=== PATIENT | male | born 1955 | race Caucasian/White ===

== ENCOUNTER 2018-11-13 12:35 | Emergency (ER) | payer BC ==
[~2018-11-13] VITALS: Ht 177.8 cm; Wt 70.5 kg
[2018-11-13 12:55] VITALS: TEMP 97.9
[2018-11-13 13:37] LABS: HEMATOCRIT 49.8 % (42.0-52.0); HEMOGLOBIN 17.6 g/dl (13.5-18.0); MEAN CELL VOLUME 89 fl (80.0-100.0); MEAN CORPUSCULAR HEMOGLOBIN 31 pg (27.0-31.0); MEAN CORPUSCULAR HGB CONC 35 g/dl (33.0-37.0); MEAN PLATELET VOLUME 9.9 fl (7.4-10.4); PLATELET COUNT 329 K/mm3 (130-400); RED BLOOD COUNT 5.62 M/mm3 (4.20-5.60); REDCELL DISTRIBUTION WIDTH-CV 14.5 % (11.5-14.5)
[2018-11-13 13:49] LABS: BAND 3 % (0-10); BASOPHIL 1 % (0-2); LYMPHOCYTE 9 % (20.0-51.0); NEUTROPHILS 73 % (42.0-75.2); PLATELET ESTIMATE NORMAL (NORMAL)
[2018-11-13 13:52] LABS: BILIRUBIN,TOTAL 1.6 mg/dL (0.0-1.0); CALCIUM 10.3 mg/dL (8.4-10.2); CREATININE, serum 1.19 mg/dL (0.66-1.25); POTASSIUM 3.2 mmol/L (3.4-5.0)
[2018-11-13] MEDS ORDERED: ASPIRIN 81M81 MG/TA2 PO (14:01)
[2018-11-13] MEDS ORDERED: PLAVIX 75MG TAB75 MG PO (14:01)
[2018-11-13] MEDS ORDERED: KAPSPARGO SPRIN25 MG PO (14:02)
[2018-11-13 14:04] LABS: TROPONIN-I 0.017 ng/mL (0.000-0.034)
[2018-11-13 14:32] LABS: COLLECTION METHOD CLEAN CATCH
[2018-11-13 14:44] LABS: MUCOUS Present /lpf; PH 7 (5-8); SQUAMOUS EPITHELIAL 0-2 /hpf; URINE APPEARANCE Clear; URINE BACTERIA None Seen /hpf; URINE BILIRUBIN Negative (NEGATIVE); URINE BLOOD 1+ (NEGATIVE); URINE COLOR Yellow; URINE GLUCOSE Negative (NEGATIVE); URINE KETONE 1+ (NEGATIVE); URINE LEUKOCYTE ESTERASE Negative (NEGATIVE); URINE NITRATE Negative (NEGATIVE); URINE PROTEIN(semi-quant) 2+ (NEGATIVE); URINE UROBILINOGEN Negative (NEGATIVE); URINE WBC 0-2 /hpf
[2018-11-13 16:56] LABS: BASO # 0.1 (0.0-0.2); BASO % 0.2 % (0.0-2.0); EOS # 0.1 (0.0-0.7); EOS % 0.4 % (0-4.0); GRAN # 19.2 (1.4-6.5); HEMATOCRIT 46.3 % (42.0-52.0); HEMOGLOBIN 16.3 g/dl (13.5-18.0); LYMPH % 8.4 % (20.0-51.0); MEAN CELL VOLUME 90 fl (80.0-100.0); MEAN CORPUSCULAR HEMOGLOBIN 32 pg (27.0-31.0); MEAN CORPUSCULAR HGB CONC 35 g/dl (33.0-37.0); MEAN PLATELET VOLUME 9.9 fl (7.4-10.4); MONO # 2.7 (0.1-0.6); MONO % 11.2 % (1.7-9.3); PLATELET COUNT 298 K/mm3 (130-400); RED BLOOD COUNT 5.17 M/mm3 (4.20-5.60); REDCELL DISTRIBUTION WIDTH-CV 14.4 % (11.5-14.5)
[2018-11-13] MEDS ORDERED: ZOFRAN ODT4 MG PO (17:32)
[2018-11-13 18:00] VITALS: BP 164/90; PULSE 76
== END 2018-11-13 18:00 | disposition home or self-care (01) ==
LOC: COL.ER 12:35
PROVIDERS: Emergency Medicine
DX: K52.9 Noninfective gastroenteritis and colitis, unspecified (principal); I10 Essential (primary) hypertension; E78.5 Hyperlipidemia, unspecified; Z79.82 Long term (current) use of aspirin; Z79.02 Long term (current) use of antithrombotics/antiplatelets; F17.210 Nicotine dependence, cigarettes, uncomplicated
CPT/HCPCS: J2060; J2405; J2550; J3480; J7030; Q9967

== ENCOUNTER 2018-11-15 05:54 | Observation (INO) | payer BC ==
[~2018-11-15] VITALS: Ht 177.8 cm; Wt 75.5 kg
[~2018-11-15 05:54] MED LIST: ASPIRIN 81M81 MG/TA2 PO; KAPSPARGO SPRIN25 MG PO; PLAVIX 75MG TAB75 MG PO; ZOFRAN ODT4 MG PO
[2018-11-15 06:42] LABS: BASO % 0.2 % (0.0-2.0); GRAN # 10.7 (1.4-6.5); GRAN % 62.6 % (42.2-75.2); HEMATOCRIT 46.8 % (42.0-52.0); HEMOGLOBIN 16.6 g/dl (13.5-18.0); LYMPH # 3.6 (1.2-3.4); LYMPH % 21.3 % (20.0-51.0); MEAN CELL VOLUME 88 fl (80.0-100.0); MEAN CORPUSCULAR HEMOGLOBIN 31 pg (27.0-31.0); MEAN CORPUSCULAR HGB CONC 36 g/dl (33.0-37.0); MEAN PLATELET VOLUME 10.2 fl (7.4-10.4); MONO # 2.6 (0.1-0.6); MONO % 15.3 % (1.7-9.3); PLATELET COUNT 304 K/mm3 (130-400); RED BLOOD COUNT 5.32 M/mm3 (4.20-5.60); REDCELL DISTRIBUTION WIDTH-CV 14.2 % (11.5-14.5)
[2018-11-15] MEDS ORDERED: TOPROL XL 25MG25 MG PO (06:45)
[2018-11-15 07:13] LABS: ALBUMIN 4.6 gm/dL (3.5-5.0); BILIRUBIN,TOTAL 1.7 mg/dL (0.0-1.0); C-REACTIVE PROTEIN 1.1 mg/dL (0.0-0.9); CALCIUM 10.2 mg/dL (8.4-10.2); CREATININE, serum 1.2 mg/dL (0.66-1.25); POTASSIUM 3.1 mmol/L (3.4-5.0)
[2018-11-15 07:24] LABS: TROPONIN-I 0.061 ng/mL (0.000-0.034)
[2018-11-15 07:58] LABS: COLLECTION METHOD CLEAN CATCH
[2018-11-15 08:03] LABS: MUCOUS Present /lpf; PH 5 (5-8); SQUAMOUS EPITHELIAL None Seen /hpf; URINE APPEARANCE Clear; URINE BACTERIA None Seen /hpf; URINE BILIRUBIN Negative (NEGATIVE); URINE BLOOD 2+ (NEGATIVE); URINE COLOR Yellow; URINE GLUCOSE Negative (NEGATIVE); URINE KETONE 1+ (NEGATIVE); URINE LEUKOCYTE ESTERASE Negative (NEGATIVE); URINE NITRATE Negative (NEGATIVE); URINE PROTEIN(semi-quant) Negative (NEGATIVE); URINE RBC 0-2 /hpf; URINE UROBILINOGEN Negative (NEGATIVE)
[2018-11-15 11:50] VITALS: BP 179/86; PULSE 69; TEMP 98.8
--- NOTE | 2018-11-15 12:10 | NUR ---
pt alert and oriented. Pt breathing labored d/t nausea and pain. Pt nausea/pain managed with PRN meds and repositioning. Pt oriented to room. Pt NPO at this time. Pt rates pain 4/10 in throat and abdomen. Pt has call light in reach and MD updated on arrival to unit.
--- NOTE | 2018-11-15 15:22 | NUR ---
MD was updated on Troponin level after critical was called to this nurse. NNO received.
[2018-11-15 15:24] VITALS: BP 179/79; PULSE 63; TEMP 99.7
--- NOTE | 2018-11-15 16:00 | NUR ---
Pt's IV in LAC has stopped several times d/t occlussion from pt bending arm. Pt also had ultrasound this afternoon which fluids were stopped during. Pt next dose of potassium will be given in one hour. Pt resting in bed and continues to have some dry heaves this afternoon. Pt has been eating ice chips this afternoon. Pt has call light in reach and calls for assistance to ambulate d/t unsteady gait.
[2018-11-15 16:01] LABS: CALCIUM 8.9 mg/dL (8.4-10.2); CREATININE, serum 0.97 mg/dL (0.66-1.25); POTASSIUM 3.4 mmol/L (3.4-5.0)
[2018-11-15 19:20] VITALS: BP 132/63; PULSE 66; TEMP 99.1
--- NOTE | 2018-11-15 20:40 | NUR ---
PT IN BED AND WAS ASLEEP, BUT EASILY AWAKENED. PT DENIES PAIN OR DISCOMFORT. ADVISES THAT HE HAD A LITTLE NAUSEA TODAY BUT FEELS BETTER, ALSO, PT REQUESTED JELLO TO TRY. PT ADVISES THAT JELLO DOES NOT MAKE HIM FEEL NAUSEAD OR ANYTHING AT THIS TIME. NO FURTHER NEEDS AND CALL LIGHT WITHIN REACH.
[2018-11-15 23:24] VITALS: BP 192/82; PULSE 65; TEMP 98.3
[2018-11-16 03:34] VITALS: BP 189/78; PULSE 59; TEMP 97.3
--- NOTE | 2018-11-16 05:52 | NUR ---
PT WAS GIVEN ZOFRAN DURING THE NIGHT, BECAUSE PT WAS MOANING IN DISCOMFORT FROM FEELING NAUSEAD. PT WANTED TO TAKE A HOT BATH, BUT PT ADVISES THAT HE DOES FEEL DIZZY. PT WAS GIVEN A WARM PACK FOR HIS BACK AND HAS BEEN SLEEP/RESTING WELL SINCE THEN. CALL LIGHT WITHIN REACH.
--- NOTE | 2018-11-16 06:29 | NUR ---
PT ADVISED THAT HEAT PACK REALLY HELPED HIM AND ALSO THAT HE WANTED TO GET A NICOTINE PATCH BECAUSE HE IS A SMOKER. CALL LIGHT WITHIN REACH.
[2018-11-16 07:46] VITALS: BP 140/65; PULSE 62; TEMP 99.6
[2018-11-16 07:59] LABS: BASO % 0.3 % (0.0-2.0); EOS % 0.1 % (0-4.0); GRAN # 7.3 (1.4-6.5); GRAN % 60.8 % (42.2-75.2); HEMATOCRIT 38.3 % (42.0-52.0); LYMPH # 3.2 (1.2-3.4); LYMPH % 26.8 % (20.0-51.0); MEAN CELL VOLUME 92 fl (80.0-100.0); MEAN CORPUSCULAR HEMOGLOBIN 31 pg (27.0-31.0); MEAN CORPUSCULAR HGB CONC 34 g/dl (33.0-37.0); MEAN PLATELET VOLUME 10.2 fl (7.4-10.4); MONO # 1.4 (0.1-0.6); MONO % 11.5 % (1.7-9.3); PLATELET COUNT 255 K/mm3 (130-400); RED BLOOD COUNT 4.15 M/mm3 (4.20-5.60); REDCELL DISTRIBUTION WIDTH-CV 14.6 % (11.5-14.5)
[2018-11-16 08:07] LABS: CALCIUM 8.2 mg/dL (8.4-10.2); CREATININE, serum 0.89 mg/dL (0.66-1.25); MAGNESIUM 2.2 mg/dL (1.6-2.3); POTASSIUM 3.2 mmol/L (3.4-5.0)
[2018-11-16 11:22] VITALS: BP 176/82; PULSE 59; TEMP 98.7
--- NOTE | 2018-11-16 14:59 | NUR ---
Plan to return home with michael as care support. Patient reports that he does not have a DPOA, and denies having any needs, or using any home health. Pt reports PCP Dr. He, and Kerry stack for RX. No additional concerns identified.
[2018-11-16 15:12] VITALS: BP 178/79; PULSE 60; TEMP 98.4
[2018-11-16] MEDS ORDERED: LIPITOR 40MG TA40 MG PO (15:39)
[2018-11-16] MEDS ORDERED: K-DUR 10 MEQ T10 MEQ PO (15:42)
--- NOTE | 2018-11-16 16:31 | NUR ---
Discharge instructions reviewed with the patient, instructed to follow up with PCP in 1 week and to hav BMP drawn prior to appointment, isntructed to stop smoking marijuanas this is beleives to have contributed to his Nausea/vomitting, IV site removed, scripts for Lipitor and KCL sent to [facility] pharmacy for him
== END 2018-11-16 16:38 | disposition home or self-care (01) ==
LOC: COL.ER 05:54 → MEDICAL 08:50
PROVIDERS: Emergency Medicine; ADMIT Internal Medicine
DX: R11.2 Nausea with vomiting, unspecified (principal); I10 Essential (primary) hypertension; E87.6 Hypokalemia; D72.829 Elevated white blood cell count, unspecified; K21.9 Gastro-esophageal reflux disease without esophagitis; R82.4 Acetonuria; I73.9 Peripheral vascular disease, unspecified; R94.39 Abnormal result of other cardiovascular function study; F17.210 Nicotine dependence, cigarettes, uncomplicated; Z79.82 Long term (current) use of aspirin; Z79.02 Long term (current) use of antithrombotics/antiplatelets; Z82.49 Family history of ischemic heart disease and other diseases of the circulatory system; Z83.3 Family history of diabetes mellitus
CPT/HCPCS: C9113; G0378; J1650; J2060; J2270; J2405; J3480; J7030

== ENCOUNTER 2022-02-14 09:50 | Inpatient (IN) | payer MEDICARE ==
[~2022-02-14] VITALS: Ht 177.8 cm; Wt 69.7 kg
[2022-02-14] VITALS (465 sets, daily range): BP systolic 106–164; BP diastolic 73–96; PULSE 81–87; TEMP 98.1–98.2; O2SAT 88–100
[~2022-02-14 09:50] MED LIST changes: +K-DUR 10 MEQ T10 MEQ PO; +LIPITOR 40MG TA40 MG PO; +TOPROL XL 25MG25 MG PO
[2022-02-14 10:09] LABS: MEAN CELL VOLUME 83 fl (80.0-100.0); MEAN CORPUSCULAR HGB CONC 37 g/dl (33.0-37.0); MEAN PLATELET VOLUME 9.5 fl (7.4-10.4); PLATELET COUNT 396 K/mm3 (130-400); RED BLOOD COUNT 6.32 M/mm3 (4.20-5.60); REDCELL DISTRIBUTION WIDTH-CV 15.2 % (11.5-14.5)
[2022-02-14 10:15] LABS: HEMATOCRIT 52.7 % (42.0-52.0); HEMOGLOBIN 19.3 g/dl (13.5-18.0); MEAN CORPUSCULAR HEMOGLOBIN 31 pg (27-31)
[2022-02-14 10:31] LABS: ALBUMIN 5.2 gm/dL (3.4-4.8); BAND 5 % (0-10); BASOPHIL 1 % (0-2); BILIRUBIN,TOTAL 1.1 mg/dL (0.2-1.2); C-REACTIVE PROTEIN 2.67 mg/dL (0.00-0.50); CALCIUM 10.3 mg/dL (8.4-10.2); CREATININE, serum 6.52 mg/dL (0.72-1.25); LYMPHOCYTE 10 % (20.0-51.0); NEUTROPHILS 81 % (42.0-75.2); PLATELET ESTIMATE NORMAL (NORMAL); POTASSIUM 3.6 mmol/L (3.5-4.5); TOTAL PROTEIN 9.2 gm/dL (6.2-8.1)
[2022-02-14 10:32] LABS: MICROCYTOSIS 1+
[2022-02-14 10:37] LABS: TROPONIN-I 0.098 ng/mL (0.00-0.033)
--- NOTE | 2022-02-14 13:40 | NUR ---
Patient alert and oriented upon arrival. Able to self transfer to ICU cot independently. Continues to have intermittent nausea. BP elevated and hospitalist notified. Awaiting for further admission orders. Will continue to monitor.
--- NOTE | 2022-02-14 15:06 | NUR ---
Discussed with ALAINA Clark about patient's elevated WBC count and no antibiotics ordered. Hospitalist suspecting elevated WBC due to dehydration but will review chart.
--- NOTE | 2022-02-14 17:30 | NUR ---
Dr. Godfrey at bedside to see patient. Will continue current care plan.
[2022-02-14 18:46] LABS: COLLECTION METHOD CLEAN CATCH
[2022-02-14 18:59] LABS: MUCOUS Present (NOT PRESENT); PH 5 (5-8); SQUAMOUS EPITHELIAL None Seen /hpf (0-10); URINE APPEARANCE Hazy (CLEAR/HAZY); URINE BACTERIA None Seen /hpf (NONE SEEN); URINE BILIRUBIN Negative (NEGATIVE); URINE BLOOD 2+ (NEGATIVE); URINE COLOR Yellow (YELLOW); URINE GLUCOSE 1+ (NEGATIVE); URINE KETONE Negative (NEGATIVE); URINE LEUKOCYTE ESTERASE Negative (NEGATIVE); URINE NITRATE Negative (NEGATIVE); URINE PROTEIN(semi-quant) 1+ (NEGATIVE); URINE RBC 0-2 /hpf (0-2); URINE UROBILINOGEN Negative (NEGATIVE)
[2022-02-14 19:03] LABS: TRICYCLIC ANTIDEPRESS URINE NEGATIVE
[2022-02-14 23:32] LABS: CALCIUM 8.1 mg/dL (8.4-10.2); CREATININE, serum 3.46 mg/dL (0.72-1.25); MAGNESIUM 2.2 mg/dL (1.6-2.6); PHOSPHOROUS 4.5 mg/dL (2.3-4.7); POTASSIUM 3.7 mmol/L (3.5-4.5)
[2022-02-15] VITALS (1351 sets, daily range): BP systolic 109–158; BP diastolic 55–93; PULSE 68–96; TEMP 98.1–99; O2SAT 78–100
[2022-02-15 01:11] LABS: CREATININE, serum 3.26 mg/dL (0.72-1.25)
[2022-02-15 01:15] LABS: FRACTIONAL EXCRETION OF NA+ 0.62 %
[2022-02-15 06:06] LABS: HEMATOCRIT 40.6 % (42.0-52.0); MEAN CORPUSCULAR HGB CONC 35 g/dl (33.0-37.0); MEAN PLATELET VOLUME 10.2 fl (7.4-10.4); RED BLOOD COUNT 4.54 M/mm3 (4.20-5.60); REDCELL DISTRIBUTION WIDTH-CV 14.8 % (11.5-14.5)
[2022-02-15 06:11] LABS: MEAN CELL VOLUME 89 fl (80.0-100.0); MEAN CORPUSCULAR HEMOGLOBIN 31 pg (27-31)
[2022-02-15 06:12] LABS: PLATELET COUNT 265 K/mm3 (130-400)
[2022-02-15 06:34] LABS: CALCIUM 7.9 mg/dL (8.4-10.2); CREATININE, serum 2.35 mg/dL (0.72-1.25); POTASSIUM 3.6 mmol/L (3.5-4.5)
[2022-02-15 07:25] LABS: BAND 21 % (0-10); LYMPHOCYTE 6 % (20.0-51.0); NEUTROPHILS 65 % (42.0-75.2); OVALOCYTES 1+; PLATELET ESTIMATE NORMAL (NORMAL)
--- NOTE | 2022-02-15 10:05 | NUR ---
Social Work student met with patient to discuss discharge planning. Patient lives in [place] and has listed his sister in law as his emergency contact, Vikki(ph#[phone]). Patient sees Dr. Roa for primary care, and receives his medications from [facility] in [place] with no cost difficulty. Patient does not utilize any durable medical equiptment nor any oxygen needs. Patient states that he is independent with his ADL's. Patient states that he does not have a DPOA-HC established. This SW student found next of kin. Patient is and does not have any blood-related kids. Patient states he has two step-sons. Patient has two brothers: Daryl and Alexander, but he states he does not have a contact for them and they do not live in [place]. SW student asked the patient if he would be interested in filling out a DPOA-HC while in the hospital and the patient replied with a hard, "No." *Discharge Plan: Home*
--- NOTE | 2022-02-15 15:33 | NUR ---
AT 1530 PATIENT TRANSPORTED TO ROOM 326 REPROT WAS GIVEN TO CHEY RIBERAUPPER AND BOTTOM LACER HAND
[2022-02-16] VITALS (1420 sets, daily range): BP systolic 108–149; BP diastolic 63–80; PULSE 50–72; TEMP 97.8–99.1; O2SAT 82–100
[2022-02-16 05:45] LABS: HEMATOCRIT 37.4 % (42.0-52.0); HEMOGLOBIN 12.7 g/dl (13.5-18.0); MEAN CELL VOLUME 91 fl (80.0-100.0); MEAN CORPUSCULAR HEMOGLOBIN 31 pg (27-31); MEAN CORPUSCULAR HGB CONC 34 g/dl (33.0-37.0); MEAN PLATELET VOLUME 10.3 fl (7.4-10.4); PLATELET COUNT 238 K/mm3 (130-400); RED BLOOD COUNT 4.11 M/mm3 (4.20-5.60); REDCELL DISTRIBUTION WIDTH-CV 14.9 % (11.5-14.5)
[2022-02-16 06:06] LABS: CALCIUM 7.9 mg/dL (8.4-10.2); CREATININE, serum 1.06 mg/dL (0.72-1.25); MAGNESIUM 2.4 mg/dL (1.6-2.6); POTASSIUM 3.7 mmol/L (3.5-4.5)
[2022-02-16 06:59] LABS: LYMPHOCYTE 12 % (20.0-51.0); NEUTROPHILS 75 % (42.0-75.2); PLATELET ESTIMATE NORMAL (NORMAL)
--- NOTE | 2022-02-16 08:30 | NUR ---
Patient still reports nausea on and off. Having difficulty keeping anything he eats or drinks down. Patient has PRN emetics as needed. VS stable at this time
[2022-02-17] VITALS (81 sets, daily range): BP systolic 143–180; BP diastolic 61–80; PULSE 51–76; TEMP 98.2–98.9; O2SAT 96–100
--- NOTE | 2022-02-17 01:38 | NUR ---
CALLED HI RN NURSE ACCEPTING PATIENT TRANSFERRED TO ROOM 307. NURSE REPORT GIVEN
--- NOTE | 2022-02-17 02:28 | NUR ---
PATIENT ADMITTED TO MEDICAL FLOOR, ROOM 307. AWAKE, ALERT, ORIENTED, AMBULATORY. PATIEN ENDORSES MILD NAUSEA BUT NO VOMITING AT THIS TIME. WILL CONTINUE TO MONITOR
[2022-02-17 07:37] LABS: BASO % 0.2 % (0.0-2.0); GRAN # 6.5 K/mm3 (1.4-6.5); GRAN % 64.5 % (42.2-75.2); HEMOGLOBIN 12.3 g/dl (13.5-18.0); LYMPH # 2.3 K/mm3 (1.2-3.4); LYMPH % 22.3 % (20.0-51.0); MEAN CELL VOLUME 94 fl (80.0-100.0); MEAN CORPUSCULAR HEMOGLOBIN 31 pg (27-31); MEAN CORPUSCULAR HGB CONC 34 g/dl (33.0-37.0); MEAN PLATELET VOLUME 10.5 fl (7.4-10.4); MONO # 1.3 K/mm3 (0.1-0.6); MONO % 12.6 % (1.7-9.3); PLATELET COUNT 225 K/mm3 (130-400); RED BLOOD COUNT 3.92 M/mm3 (4.20-5.60); REDCELL DISTRIBUTION WIDTH-CV 14.6 % (11.5-14.5)
[2022-02-17 07:43] LABS: HEMATOCRIT 36.7 % (42.0-52.0)
[2022-02-17 07:55] LABS: CREATININE, serum 0.89 mg/dL (0.72-1.25); POTASSIUM 3.6 mmol/L (3.5-4.5)
--- NOTE | 2022-02-17 20:22 | NUR ---
ALERT AND OX4. SLEEPING IN BED, DENIES PAIN, SOA OR DIZZY. POOR APPEIETE. NO NEEDS AT THIS TIME. CALL LIGHT WI REACH. POC DISCUSSED. NEEDS MET.
[2022-02-18 04:42] VITALS: BP 155/71; PULSE 60; TEMP 98.4
[2022-02-18 07:40] VITALS: BP 164/85; PULSE 55; TEMP 98.5
[2022-02-18] MEDS ORDERED: CARAFATE S1 GM/10 ML PO (08:01)
[2022-02-18] MEDS ORDERED: PROTONIX 40MG T40 MG PO (08:02)
[2022-02-18] MEDS ORDERED: COREG 3.123.125 MG/T PO (08:14)
[2022-02-18] MEDS ORDERED: ZOFRAN 4MG T4 MG/TAB PO (09:27)
== END 2022-02-18 10:53 | disposition home or self-care (01) | DRG 682 ==
LOC: COL.ER 09:50 → ICU 10:58 → MEDICAL 02-17 01:21
PROVIDERS: Family Medicine; Internal Medicine; Nurse Practitioner Family; Physician Assistant; Registered Nurse; ADMIT Student in an Organized Health Care Education/Training Program
DX: N17.0 Acute kidney failure with tubular necrosis (principal); I21.A1 Myocardial infarction type 2; E87.2 Acidosis; R65.10 Systemic inflammatory response syndrome (SIRS) of non-infectious origin without acute organ dysfunction; E44.0 Moderate protein-calorie malnutrition; I10 Essential (primary) hypertension; E78.5 Hyperlipidemia, unspecified; I73.9 Peripheral vascular disease, unspecified; E86.0 Dehydration; I49.3 Ventricular premature depolarization; F17.210 Nicotine dependence, cigarettes, uncomplicated; I71.4 Abdominal aortic aneurysm, without rupture; E03.9 Hypothyroidism, unspecified; E86.1 Hypovolemia; K44.9 Diaphragmatic hernia without obstruction or gangrene; J47.9 Bronchiectasis, uncomplicated; A08.4 Viral intestinal infection, unspecified; R11.15 Cyclical vomiting syndrome unrelated to migraine; Z79.82 Long term (current) use of aspirin; Z68.21 Body mass index [BMI] 21.0-21.9, adult
CPT/HCPCS: 99223-AI; 99232-AI; 99239; C9113; J0692; J1644; J2270; J2405; J2550; J7030; J7120